=== PATIENT | male | born 1955 | race Caucasian/White ===

== ENCOUNTER → 2017-04-14 | Outpatient (CLI) | payer MEDICARE ==
--- NOTE | 2017-04-14 09:28 | RAD ---
AP right lower extremity, 04/14/2017: History: Preop evaluation, bone length study AP views of the femur and lower leg were obtained with skin markers in place laterally to facilitate preoperative bone length measurements. This limited exam demonstrates moderate degenerative change at the right knee joint with considerable narrowing of the medial compartment.
--- NOTE | 2017-04-14 10:23 | RAD ---
Examination: MRI right knee Tavarez & Nephew protocol HISTORY: History of chronic knee pain COMPARISON: None available TECHNIQUE: Axial T2 fat-saturated images and sagittal images of the knee was performed using Tavarez & Nephew protocol. FINDINGS: The anterior cruciate posterior cruciate ligament appear intact. There is an attenuated appearance of the body and posterior horn the medial meniscus probably degeneration or old degenerative tear. There is complete cartilage loss identified in the weightbearing portion of the medial compartment. Large osteophyte formation identified in the medial, lateral compartments. There is moderate osteophyte formation identified in the patellofemoral compartment. There is severe joint space loss identified in the medial, lateral, patellofemoral compartments. Moderate knee joint effusion. The extensor mechanism is intact. IMPRESSION: 1. Severe tricompartmental degenerative changes. 2. Moderate knee joint effusion. 3. Attenuated appearance of the body and posterior horn medial meniscus could be secondary to degeneration or old degenerative tear. Electronically signed by: Doc Valerio MD (04/14/2017 10:19 AM) [facility]
== END | disposition home or self-care (01) ==
LOC: RAD 08:51
PROVIDERS: ATTEND Orthopaedic Surgery Sports Medicine
DX: Z01.818 Encounter for other preprocedural examination (principal); M17.11 Unilateral primary osteoarthritis, right knee; Z96.651 Presence of right artificial knee joint
CPT/HCPCS: 73721; 77073

== ENCOUNTER → 2017-04-27 | Outpatient (CLI) | payer MEDICARE ==
[~2017-04-27] MED LIST: ASPI-482 PO; DM H PO; FERR-26 PO; HYDR12.58 PO; LOSA100T6 PO; POTA10TA12 PO; SIMV40TA3 PO; TRAM50TA PO; WARF5TAB7 PO; ZOLP10TA PO
[2017-04-27 14:16] LABS: BASO # 0.1 x10^3/uL (0.0-0.2); BASO % 1 % (0-3); EOS % 8 % (0-3); HEMATOCRIT 42.7 % (39.0-53.0); HEMOGLOBIN 14.8 g/dL (13.0-17.5); LYMPH # 2.7 x10^3/uL (1.0-4.8); LYMPH % 31 % (24-48); MEAN CORPUSCULAR HEMOGLOBIN 30 pg (25-35); MEAN CORPUSCULAR HGB CONC 35 g/dL (31-37); MEAN CORPUSCULAR VOLUME 87 fL (79-100); MONO % 6 % (0-9); NEUT % 55 % (31-73); PLATELET COUNT 212 x10^3/uL (140-400); RED BLOOD COUNT 4.93 x10^6/uL (4.30-5.70); WHITE BLOOD COUNT 8.9 x10^3/uL (4.0-11.0)
[2017-04-27 14:26] LABS: INR 1.1 (0.8-1.1); PROTHROMBIN TIME PATIENT 13.2 SEC (11.7-14.0)
--- NOTE | 2017-04-27 14:29 | EKG ---
[facility] [address] [place] [address] Test Date: 2017-04-27 Test Time: 14:34:19 Pat Name: JANELLE BYRD Department: Room: Gender: M Community Board Member: : 1955 Requested By: ISSA LAROSE Order Number: [id number] Reading MD: Minor Toussaint Measurements Intervals [place] Rate: 74 P: 38 MN: 200 QRS: 29 QRSD: 76 T: 48 QT: 370 QTc: 416 Interpretive Statements SINUS RHYTHM S1,S2,S3 PATTERN QRS(T) CONTOUR ABNORMALITY CONSISTENT WITH POSSIBLE SEPTAL INFARCT AGE UNDETERMINED ABNORMAL ECG RI6.01 No previous ECG available for comparison Electronically Signed On 04-29-2017 16:27:59 CDT by Minor Toussaint
[2017-04-27 14:31] LABS: BILIRUBIN,URINE NEGATIVE (NEG); GLUCOSE,URINE NEGATIVE (NEG); NITRITE,URINE NEGATIVE (NEG); PH,URINE 5.5; PROTEIN,URINE NEGATIVE (NEG-TRACE); UROBILINOGEN,URINE 0.2 mg/dL (0.2 mg/dL)
[2017-04-27 14:35] LABS: ALBUMIN 3.6 g/dL (3.4-5.0); CALCIUM 9.5 mg/dL (8.5-10.1); CREATININE 1.3 mg/dL (0.7-1.3); GFR 56.3; POTASSIUM 3.2 mmol/L (3.5-5.1)
[2017-04-27 14:50] LABS: BACTERIA,URINE 0 /HPF (0-FEW); RBC,URINE 0 /HPF (0-2); SQUAMOUS EPITHELIAL CELL,UR OCC /LPF; WBC,URINE 0 /HPF (0-4)
--- NOTE | 2017-04-27 16:48 | RAD ---
CHEST PA LATERAL Clinical Indication: PRE OP pt to have knee surgery 05/09 Comparison: None. Findings: Normal lung volume. No focal consolidation. Normal pulmonary vasculature. No pleural effusion or pneumothorax. The cardiomediastinal silhouette is normal. Tortuous thoracic aorta. No acute osseous abnormality. Moderate multilevel degenerative changes of the visualized spine. Rounded small metallic foreign body overlying the right superior mediastinum seen only on the frontal view. IMPRESSION: No acute cardiopulmonary process.
== END | disposition home or self-care (01) ==
LOC: SURGPAT 13:35
PROVIDERS: ATTEND Orthopaedic Surgery Sports Medicine
DX: Z01.818 Encounter for other preprocedural examination (principal); M17.11 Unilateral primary osteoarthritis, right knee
CPT/HCPCS: 36415; 71020; 80048; 81001; 82040; 85025; 85610; 85651; 85730; 87641; 93005

== ENCOUNTER 2017-05-09 06:13 | Inpatient (IN) | payer MEDICARE ==
[2017-05-09] VITALS (9 sets, daily range): BP systolic 89–134; BP diastolic 48–83
[~2017-05-09] VITALS: Ht 170.2 cm; Wt 111.3 kg
[~2017-05-09 06:13] MED LIST changes: +ACETAMINOPHEN 500 MG TABLET PO PRN; -FERR-26 PO; +HYDROcodone/APAP 7.5/325MG 1 TAB TABLET PO PRN; +MELOXICAM 7.5 MG TABLET PO PRN; +MORPHINE SULFATE 5 MG, KETOROLAC 30 MG, ROPIVacaine 0.5% PF 60 ML, EPINEPHrine 0.5 MG i... INT ART ONE; -WARF5TAB7 PO
[2017-05-09] MEDS ORDERED: fentaNYL PF VIAL 100 MCG/2 ML VIAL IV PRN ×3 (07:00→07:15)
[2017-05-09] MEDS ORDERED: ONDANSETRON PF 4 MG/2 ML VIAL. IV PRN (07:00)
[2017-05-09] MEDS ORDERED: IV RINGERS,LACTATED 1000ML 1,000 ML IV SCH (07:00)
[2017-05-09] MEDS ORDERED: HYDROmorphone 2 MG/ML VIAL IV PRN (07:00)
[2017-05-09] MEDS ORDERED: PROCHLORPERAZINE 10 MG/2 ML VIAL. IV PRN ×2 (07:00→07:15)
[2017-05-09] MEDS ORDERED: LIDOCAINE 1% PF 2 ML VIAL. ID PRN (07:00)
[2017-05-09] MEDS ORDERED: ROCURONIUM 100 MG/10 ML VIAL. ONE (07:13)
[2017-05-09] MEDS ORDERED: MIDAZOLAM HCL/PF 2 MG/2 ML VIAL. ONE (07:14)
[2017-05-09] MEDS ORDERED: fentaNYL PF VIAL 100 MCG/2 ML VIAL ONE ×2 (07:14→11:19)
[2017-05-09] MEDS ORDERED: MORPHINE SULFATE 4 MG/ML DISP.SYRIN. IV PRN ×2 (07:15)
[2017-05-09] MEDS ORDERED: FAMOTIDINE 20 MG/2 ML VIAL ONE (07:15)
[2017-05-09] MEDS ORDERED: ZOLPIDEM 5 MG TABLET. PO PRN ×2 (07:15)
[2017-05-09] MEDS ORDERED: DEXTROSE 50% 25 GM / 50ML DISP.SYRIN. IV PRN (07:15)
[2017-05-09] MEDS ORDERED: LIDOCAINE 2% PF Vial for OR 5 ML VIAL. ONE (07:15)
[2017-05-09] MEDS ORDERED: METOCLOPRAMIDE HCL 10 MG/2 ML VIAL. IV PRN (07:15)
[2017-05-09] MEDS ORDERED: HYDROcodone/APAP 10/325 1 TAB TABLET PO PRN (07:15)
[2017-05-09] MEDS ORDERED: 0.9 % SODIUM CHLORIDE 10 ML DISP.SYRIN. IV PRN (07:15)
[2017-05-09] MEDS ORDERED: CALCIUM CARBONATE 500 MG TAB.CHEW PO PRN (07:15)
[2017-05-09] MEDS ORDERED: diphenhydrAMINE 50 MG/ML VIAL IV PRN (07:15)
[2017-05-09] MEDS ORDERED: HYDROcodone/APAP 7.5/325MG 1 TAB TABLET PO PRN (07:15)
[2017-05-09] MEDS ORDERED: ACETAMINOPHEN 325 MG TABLET. PO PRN (07:15)
[2017-05-09] MEDS ORDERED: DEXAMETHASONE SOD PHOS 20 MG/5 ML VIAL. ONE (07:15)
[2017-05-09] MEDS ORDERED: PROCHLORPERAZINE 5 MG TABLET. PO PRN (07:15)
[2017-05-09] MEDS ORDERED: MORPHINE SULFATE 2 MG/ML DISP.SYRIN. IV PRN (07:15)
[2017-05-09] MEDS ORDERED: PROPOFOL 20 ML IV ONE (07:15)
[2017-05-09] MEDS ORDERED: oxyCODONE/APAP 5/325 1 TAB TABLET PO PRN (07:15)
[2017-05-09] MEDS ORDERED: traMADol 50 MG TABLET PO PRN ×2 (07:15)
[2017-05-09] MEDS ORDERED: ONDANSETRON PF 4 MG/2 ML VIAL. ONE (07:15)
[2017-05-09] MEDS ORDERED: MORPHINE SULFATE 10 MG/ML VIAL. IV PRN (07:15)
--- NOTE | 2017-05-09 07:15 | PDOC ---
BRIEF OPERATIVE NOTE Date: May 09, 2017 Pre-Op Diagnosis R knee DJD, primary Post-Op Diagnosis same Procedure Performed R TKA Surgeon Vivi Anesthesia Type: General, Local ISSA LAROSE II, MD May 09, 2017 07:15
[2017-05-09 07:34] LABS: PROTHROMBIN TIME PATIENT 12.7 SEC (11.7-14.0)
[2017-05-09] MEDS ORDERED: MORPHINE SULFATE 10 MG/ML VIAL. ONE (07:57)
[2017-05-09] MEDS ORDERED: 0.9 % SODIUM CHLORIDE 50 ML VIAL. IJ ONE (07:57)
[2017-05-09] MEDS ORDERED: GLYCOPYRROLATE 1 MG/5 ML VIAL. ONE (09:16)
[2017-05-09] MEDS ORDERED: NEOSTIGMINE METHYLSULFATE 5 MG/5 ML SYRINGE. ONE (09:16)
[2017-05-09] MEDS ORDERED: SEVOFLURANE 61 TO 120 MINUTES. IH ONE (09:35)
[2017-05-09] MEDS ORDERED: SEVOFLURANE > 120 MINUTES. IH ONE (09:35)
[2017-05-09] MEDS: fentaNYL PF VIAL 100 MCG/2 ML VIAL IV PRN ×3 (10:21→11:22)
[2017-05-09] MEDS ORDERED: MORPHINE SULFATE 2 MG/ML DISP.SYRIN. ONE (10:42)
[2017-05-09] MEDS: MORPHINE SULFATE 2 MG/ML DISP.SYRIN. IV PRN ×2 (10:44→11:03)
--- NOTE | 2017-05-09 11:21 | RAD ---
Indication: Post right knee replacement. Technique: 2 views of the right knee are submitted for review. No comparison is available. Findings: Right knee arthroplasty has been performed. Hardware is well seated. There is no perihardware lucency. Cartridge projects over the knee anteriorly and laterally. Surgical drain is noted. No fracture or dislocation is apparent. Impression: Expected postoperative findings of a right knee arthroplasty.
--- NOTE | 2017-05-09 11:33 | OP ---
DATE OF SURGERY: 05/09/2017 SURGEON: Bowen Larose M.D. CURVE CLEANER: Arlette Alamo. PREOPERATIVE DIAGNOSIS: Advanced primary degenerative joint disease, right knee. POSTOPERATIVE DIAGNOSIS: Advanced primary degenerative joint disease, right knee. PROCEDURE PERFORMED: Right total knee arthroplasty. COMPONENTS INSERTED: 1. Tavarez and Nephew size 4 Oxinium femur. 2. Size 3 tibial baseplate. 3. A 23- mm biconvex patella. 4. A 9-mm thick articular insert. ESTIMATED BLOOD LOSS: 125 mL. TOURNIQUET TIME: 71 minutes. COMPLICATIONS: None. REASON FOR PROCEDURE: The patient is a very pleasant 62-year-old gentleman with history of prior knee surgery and progressive and severe pain and trivial to his advanced right primary degenerative joint disease of his knee. He had failed conservative therapy such as anti-inflammatories, rehabilitation program and intra-articular steroids; and because of this, we had a discussion of the risks, benefits and alternatives of proceeding with the above surgery and he elected to proceed. DESCRIPTION OF PROCEDURE: The patient was greeted in the preoperative area by myself. His correct extremity was marked and verified. He was taken to the operative suite and antibiotics were started en route. Once in the OR, he was transferred gently supine to the OR table and secured to the bed with all pressure points padded. After successful induction with general anesthetic, we then taped in place a nonsterile tourniquet to his right thigh and proceeded to prep and drape right lower extremity in our usual sterile fashion, after being attached to our leg positioning device to the bed. We then proceeded to prep and drape including an Ioban sandwich. We conducted a standard preoperative timeout. I palpated and marked surface anatomy, including his patella and tibial tubercle and jose a line for my planned anterior midline skin incision. The extremity was then exsanguinated with an Esmarch and tourniquet insufflated to 250 mmHg. I then incised the skin and dissected the subcutaneous tissue to identify his extensor mechanism and used electrocautery to cauterize bleeders. He had quite a bit of scar tissue medially around his knee. I then performed my medial parapatellar arthrotomy and then performed my medial release with a combination of Casiano and electrocautery. His knee was quite tight. I then bluntly dissected the fat pad off the posterior patellar tendon and protected this with an [employer] and then excised the fat pad. I then released the horns of the menisci and tried to flex his knee. Prior to the procedure, his range of motion of his knee was 5 degrees to 90 degrees and so this knee was quite stiff. I then released the cruciate ligaments and tried to further flex his knee. I then pinned my Visionaire cutting block into place. I then removed my Visionaire cutting block after placing pins in all the holes. To nicole them, I then used the regular distal femoral cutting block at a +2 position and pinned this into place and made my distal femoral cut. I then placed my 5-in-1 cutting guide and made these cuts and delivered the bony pieces from the operative field. I then placed my pickle fork retractor and released more of the PCL and posterior horns of the menisci. I placed my Z retractors to protect the collaterals. I then used the extramedullary tibial cutting guide to make my proximal tibial cut. I then delivered this bony piece from the operative field. I brought his leg on to extension and removed some small bony fragments laterally and then checked his alignment with a spacer block and drop dung and was happy. I then repositioned the knee and replaced my retractors and then sized for his tibia and felt the size 3 gave the best fit. I then pinned this into place, referencing the medial third tibial tubercle and drilled and punched for the baseplate fins. I then impacted my trial femoral component into position and reamed and punched for the box of this component. I then placed my Cam component and the polyethylene trial size 9. He had range of motion from 0-130 degrees and his knee was stable to varus and valgus in extension and mid flexion. He had good patellar tracking. I then directed my attention to his patella and felt the 26 was a little too bit, so I went with the 23 biconvex patella, secured the clamp and reamed for this. After this, I removed all trial components and thoroughly irrigated all bony surfaces and then proceeded to cement in place his tibial baseplate followed by his femur. Excess bone cement was removed. He had a trial polyethylene articular insert in place and the cement was allowed to polymerize with his leg in extension. While this was occurring, I secured and clamped my patellar button into place and removed excess cement from this as well. I then irrigated more. I then injected my periarticular mixture into the soft tissue envelope around his knee. After this and the cement polymerization, I took the knee through range of motion test and stability and was I happy with a 9. I removed the trial 9 articular insert and placed the 9-mm thick polyethylene insert. I then secured and engaged this with the insertion device. After this, the tourniquet was let down and bleeders were cauterized. He was a little bit of oozy from the exposed bone ends. So, I placed a one-eighth inch Hemovac exiting superolaterally from his knee. After this, I closed the arthrotomy with a simple interrupted #1 Vicryl and tested arthrotomy closure in flexion and noted no extravasation of blood. An inverted interrupted 2-0 was used to close the subcutaneous tissue, a multi-layered approach was used proximal to the patella. Running 4-0 Monocryl in subcuticular fashion was used for the skin. The leg was cleansed and dried. A Tavarez and Nephew LIZETTE dressing was applied. Prior to completion of wound closure, all counts were reported correct x 2. No complications. The patient tolerated the surgery well. At the conclusion of the surgery, he was awakened and transferred gently supine to the recovery room cart and taken to PACU in stable and extubated condition. Postop plan is to admit him to the floor for DVT and antibiotic prophylaxis. He will receive rehabilitation and IV pain medicine as well. BOWEN LAROSE MD DR: MINNA/aria JOB#: [id number] / [id number] JACKIE
[2017-05-09 13:50] LABS: HEMATOCRIT 40.5 % (39.0-53.0); HEMOGLOBIN 14.3 g/dL (13.0-17.5)
--- NOTE | 2017-05-09 14:36 | PDOC ---
PROGRESS NOTES Subjective Subjective Pt awake and pleasant in conversation. Denies pain at this time and states his right leg just feels heavy following surgery this am. Pt states he ate a good lunch and has a healthy appetite. Objective Objective Pt awake and alert. NAD. VSS. Afebrile. Lungs CTA bilat. Resp even and unlabored. Pt on RA, not requiring supplemental O2. Heart with RRR. No murmurs. Right knee dressing CDI. Wound drain reservoir present with minimal bloody drainage present. Right LE with good color and temperature. Overall skin WDP. Vital Signs Date Time Temp Pulse Resp B/P (MAP) Pulse Ox O2 Delivery O2 Flow Rate FiO2 05/09/17 13:30 73 20 102/60 (74) 95 Nasal Cannula 2.0 05/09/17 11:25 97.9 97.9 Intake and Output 05/10/17 07:00 Intake Total 640 ml Balance 640 ml Intake Oral 640 ml Plan Plan of Care 1. Right total knee -Followed by ortho -post surgical H and H pending -PT/OT ordered 2. HTN -Resume Losartan and HTCZ 3. Insomnia -Resume home Ambien 10mg qhs Comment Review of Relevant I have reviewed the following items nicole (where applicable) has been applied. Labs Laboratory Tests Test 05/09/17 06:55 05/09/17 13:40 Prothrombin Time 12.7 SEC (11.7-14.0) Prothromb Time International Ratio 1.0 (0.8-1.1) Activated Partial Thromboplast Time 27 SEC (24-38) Hemoglobin 14.3 g/dL (13.0-17.5) Hematocrit 40.5 % (39.0-53.0) Mean Corpuscular Hemoglobin Concent 35 g/dL (31-37) Laboratory Tests Test 05/09/17 06:55 05/09/17 13:40 Prothrombin Time 12.7 SEC (11.7-14.0) Prothromb Time International Ratio 1.0 (0.8-1.1) Activated Partial Thromboplast Time 27 SEC (24-38) Hemoglobin 14.3 g/dL (13.0-17.5) Hematocrit 40.5 % (39.0-53.0) Mean Corpuscular Hemoglobin Concent 35 g/dL (31-37) Medications Current Medications Ondansetron HCl (Zofran) 4 mg PRN Q6HRS PRN IV NAUSEA/VOMITING; Start at 07:00; Stop 05/10/17 at 06:59 Fentanyl Citrate (Fentanyl 2ml Vial) 25 mcg PRN Q5MIN PRN IV MILD PAIN; Start 05/09/17 at 07:00; Stop 05/10/17 at 06:59 Fentanyl Citrate (Fentanyl 2ml Vial) 50 mcg PRN Q5MIN PRN IV MODERATE PAIN Last administered on 05/09/17 11:22; Start 05/09/17 at 07:00; Stop 05/10/17 at 06:59 Morphine Sulfate 1 mg PRN Q10MIN PRN IV SEVERE PAIN Last administered on 11:03; Start 05/09/17 at 07:00; Stop 05/10/17 at 06:59 Ringer's Solution 1,000 ml @ 0 mls/hr Q0M IV Last administered on 05/09/17 07:12; Start 05/09/17 at 07:00; Stop 05/09/17 at 18:59 Lidocaine HCl (Xylocaine-Mpf 1% Vial) 2 ml PRN 1X PRN ID PRIOR TO IV START; Start 05/09/17 at 07:00; Stop 05/10/17 at 06:59 Hydromorphone HCl (Dilaudid) 0.5 mg PRN Q10MIN PRN IV SEV PAIN, Second choice; Start 05/09/17 at 07:00; Stop 05/10/17 at 06:59 Prochlorperazine Edisylate (Compazine) 5 mg PACU PRN PRN IV NAUSEA, MRX1; Start 05/09/17 at 07:00; Stop 05/10/17 at 06:59 Morphine Sulfate 5 mg/Ketorolac Tromethamine 30 mg/Ropivacaine 60 ml/ Epinephrine HCl 0.5 mg/Sodium Chloride 100 ml @ 100 mls/hr 1X PERIOP ONCE INT ART Last administered on 05/09/17 08:05; Start 05/09/17 at 06:00; Stop at 06:59; Status DC Meloxicam (Mobic) 15 mg 1X PREOP PRN PO PRIOR TO PROCEDURE Last administered on 05/09/17 07:13; Start 05/09/17 at 06:00; Stop 05/09/17 at 18:00 Acetaminophen/ Hydrocodone Bitart (Lortab 7.5/325) 2 tab 1X PREOP PRN PO PRIOR TO PROCEDURE Last administered on 05/09/17t 07:13; Start 05/09/17 at 06:00; Stop 05/09/17 at 18:00 Acetaminophen (Tylenol) 1,000 mg 1X PREOP PRN PO PRIOR TO PROCEDURE; Start at 06:00; Stop 05/09/17 at 18:00 Cefazolin Sodium/ Dextrose 50 ml @ 100 mls/hr 1X PREOP PRN IV PRIOR TO PROCEDURE Last administered on 05/09/17t 07:35; Start 05/09/17 at 06:00; Stop 05/09/17 at 18:00 Potassium Chloride (Klor-Con) 10 meq DAILYWBKFT PO ; Start 05/10/17 at 08:00 Simvastatin (Zocor) 40 mg HS PO ; Start 05/09/17 at 21:00 Hydrochlorothiazide (Microzide) 12.5 mg DAILY PO ; Start 05/10/17 at 09:00 Losartan Potassium (Cozaar) 100 mg DAILY PO ; Start 05/10/17 at 09:00 Zolpidem Tartrate (Ambien) 5 mg PRN QHS PRN PO INSOMNIA; Start 05/09/17 at 07: 15 Rocuronium Mesa (Zemuron) 100 mg STK-MED ONCE .ROUTE ; Start 05/09/17 at 07: 13; Stop 05/09/17 at 07:14; Status DC Fentanyl Citrate (Fentanyl 2ml Vial) 100 mcg STK-MED ONCE .ROUTE ; Start at 07:14; Stop 05/09/17 at 07:15; Status DC Midazolam HCl (Versed) 2 mg STK-MED ONCE .ROUTE ; Start 05/09/17 at 07:14; Stop 05/09/17 at 07:15; Status DC Acetaminophen/ Hydrocodone Bitart (Lortab 7.5/325) 1 tab PRN Q3HRS PRN PO PAIN ; Start 05/09/17 at 07:15 Acetaminophen/ Hydrocodone Bitart (Lortab 10/325) 1 tab PRN Q3HRS PRN PO PAIN; Start 05/09/17 at 07:15 Tramadol HCl (Ultram) 50 mg PRN QID PRN PO PAIN; Start 05/09/17 at 07:15 Oxycodone/ Acetaminophen (Percocet 5/325) 1 tab PRN Q3HRS PRN PO PAIN; Start 05/09/17 at 07:15 Oxycodone/ Acetaminophen (Percocet 7.5/ 325) 1 tab PRN Q3HRS PRN PO PAIN; Start 05/09/17 at 07:15 Tramadol HCl (Ultram) 100 mg PRN Q3HRS PRN PO PAIN; Start 05/09/17 at 07:15 Morphine Sulfate 2 mg PRN Q1HR PRN IV PAIN; Start 05/09/17 at 07:15 Fentanyl Citrate (Fentanyl 2ml Vial) 25 mcg PRN Q1HR PRN IV PAIN; Start at 07:15 Diphenhydramine HCl (Benadryl) 25 mg PRN Q6HRS PRN IV ITCHING; Start 05/09/17 at 07:15 Warfarin Sodium (Coumadin) 7.5 mg 1X ONCE PO ; Start 05/09/17 at 16:00; Stop 05/09/17 at 16:01 Warfarin Sodium (Coumadin Per Pharmacy) 1 each PRN DAILY PRN MC SEE COMMENTS; Start 05/09/17 at 07:15 Multivitamins (Thera M Plus) 1 tab DAILY PO ; Start 05/10/17 at 09:00 Senna/Docusate Sodium (Senna Plus) 1 tab DAILY PO ; Start 05/10/17 at 09:00 Ferrous Sulfate (Feosol) 325 mg BIDWMEALS PO ; Start 05/10/17 at 08:00 Celecoxib (CeleBREX) 200 mg BID PO ; Start 05/09/17 at 21:00 Dextrose/Sodium Chloride 1,000 ml @ 100 mls/hr Q10H IV ; Start 05/09/17 at 07: 09 Prochlorperazine Maleate (Compazine) 10 mg PRN Q4HRS PRN PO NAUSEA/VOMITING; Start 05/09/17 at 07:15 Metoclopramide HCl (Reglan) 10 mg PRN Q4HRS PRN IV NAUSEA/VOMITING; Start at 07:15 Magnesium Hydroxide (Milk Of Magnesia) 2,400 mg 1X PRN PRN PO CONSTIPATION; Start 05/10/17 at 06:00; Stop 05/11/17 at 05:59 Bisacodyl (Dulcolax Supp) 10 mg 1X PRN PRN AR CONSTIPATION; Start 05/10/17 at 16:00; Stop 05/11/17 at 15:59 Acetaminophen (Tylenol) 650 mg PRN Q4HRS PRN PO MILD PAIN / TEMP; Start at 07:15 Zolpidem Tartrate (Ambien) 5 mg PRN QHS PRN PO INSOMNIA, MAY REPEAT IN 1HR; Start 05/09/17 at 07:15 Calcium Carbonate/ Glycine (Tums) 500 mg PRN QID PRN PO INDIGESTION; Start at 07:15 Morphine Sulfate 4 mg PRN Q1HR PRN IV PAIN; Start 05/09/17 at 07:15 Morphine Sulfate 6 mg PRN Q1HR PRN IV PAIN; Start 05/09/17 at 07:15 Morphine Sulfate 8 mg PRN Q1HR PRN IV PAIN; Start 05/09/17 at 07:15 Sodium Chloride (Normal Saline Flush) 10 ml QSHIFT PRN IV AFTER MEDS AND BLOOD DRAWS; Start 05/09/17 at 07:15 Fentanyl Citrate (Fentanyl 2ml Vial) 50 mcg PRN Q1HR PRN IV PAIN; Start at 07:15 Prochlorperazine Edisylate (Compazine) 10 mg PRN Q4HRS PRN IV NAUSEA/VOMITING; Start 05/09/17 at 07:15 Dextrose (Dextrose 50%-Water Syringe) 12.5 gm PRN Q15MIN PRN IV SEE COMMENTS; Start 05/09/17 at 07:15 Cefazolin Sodium/ Dextrose 50 ml @ 100 mls/hr Q6H IV ; Start 05/09/17 at 13:30 ; Stop 05/10/17 at 01:59 Propofol 20 ml @ As Directed STK-MED ONCE IV ; Start 05/09/17 at 07:15; Stop 05/09/17 at 07:16; Status DC Dexamethasone Sodium Phosphate (Decadron) 20 mg STK-MED ONCE .ROUTE ; Start at 07:15; Stop 05/09/17 at 07:16; Status DC Famotidine (Pepcid) 20 mg STK-MED ONCE .ROUTE ; Start 05/09/17 at 07:15; Stop 05/09/17 at 07:16; Status DC Lidocaine HCl (Lidocaine Pf 2% Vial) 5 ml STK-MED ONCE .ROUTE ; Start 05/09/17 at 07:15; Stop 05/09/17 at 07:16; Status DC Ondansetron HCl (Zofran) 4 mg STK-MED ONCE .ROUTE ; Start 05/09/17 at 07:15; Stop 05/09/17 at 07:16; Status DC Morphine Sulfate 10 mg STK-MED ONCE .ROUTE ; Start 05/09/17 at 07:57; Stop at 07:58; Status DC Sodium Chloride (Sodium Chloride) 50 ml STK-MED ONCE IJ ; Start 05/09/17 at 07: 57; Stop 05/09/17 at 07:58; Status DC Neostigmine Methylsulfate 5 mg STK-MED ONCE .ROUTE ; Start 05/09/17 at 09:16; Stop 05/09/17 at 09:17; Status DC Glycopyrrolate (Robinul) 1 mg STK-MED ONCE .ROUTE ; Start 05/09/17 at 09:16; Stop 05/09/17 at 09:17; Status DC Sevoflurane (Ultane) 60 ml STK-MED ONCE IH ; Start 05/09/17 at 09:35; Stop at 09:36; Status DC Sevoflurane (Ultane) 90 ml STK-MED ONCE IH ; Start 05/09/17 at 09:35; Stop at 09:36; Status DC Morphine Sulfate 2 mg STK-MED ONCE .ROUTE ; Start 05/09/17 at 10:42; Stop at 10:43; Status DC Fentanyl Citrate (Fentanyl 2ml Vial) 100 mcg STK-MED ONCE .ROUTE ; Start at 11:19; Stop 05/09/17 at 11:20; Status DC Active Scripts Active Reported Potassium Chloride 10 Meq Tablet.er 10 Meq PO DAILY Cold Relief Head Congest Cplt (Dm Hb/Pe/Acetaminophen/Chlorph) 1 Each Tablet.seq 1 Each PO PRN Q24HRS PRN Hydrochlorothiazide Tablet (Hydrochlorothiazide) 12.5 Mg Tablet 12.5 Mg PO DAILY Losartan Potassium 100 Mg Tablet 100 Mg PO DAILY Simvastatin 40 Mg Tablet 40 Mg PO HS Tramadol Hcl 50 Mg Tablet 1 Tab PO TID Ambien (Zolpidem Tartrate) 10 Mg Tablet 10 Mg PO HS PRN Aspir 81 (Aspirin) 81 Mg Tablet. 1 Tab PO DAILY Vitals/I & O Vital Sign - Last 24 Hours 05/09/17 05/09/17 05/09/17 05/09/17 06:32 06:49 07:13 10:10 Temp 97.3 97.3 98.1 97.3 97.3 98.1 Pulse 56 56 80 Resp 20 20 20 16 B/P (MAP) 163/73 121/59 Pulse Ox 99 99 99 97 O2 Delivery Room Air Room Air Simple Mask O2 Flow Rate 10 05/09/17 05/09/17 05/09/17 05/09/17 10:21 10:25 10:32 10:40 Pulse 78 72 Resp 14 16 18 16 B/P (MAP) 98/42 95/51 Pulse Ox 97 94 95 93 O2 Delivery Simple Mask Room Air Nasal Cannula Room Air O2 Flow Rate 3.0 05/09/17 05/09/17 05/09/17 05/09/17 10:44 10:55 11:03 11:10 Temp 97.9 97.9 Pulse 81 78 Resp 18 16 18 18 B/P (MAP) 97/44 94/48 Pulse Ox 96 96 O2 Delivery Nasal Cannula Nasal Cannula O2 Flow Rate 2 2 05/09/17 05/09/17 05/09/17 05/09/17 11:22 11:25 11:45 11:45 Temp 97.9 97.9 Pulse 68 76 76 Resp 14 18 20 20 B/P (MAP) 92/46 101/58 (72) 101/58 (72) Pulse Ox 96 92 92 92 O2 Delivery Nasal Cannula Nasal Cannula Nasal Cannula Nasal Cannula O2 Flow Rate 2 2.0 2.0 05/09/17 05/09/17 05/09/17 05/09/17 12:00 12:15 12:20 12:30 Pulse 79 68 82 Resp 20 20 20 B/P (MAP) 98/56 (70) 101/59 (73) 89/83 (85) Pulse Ox 97 96 97 O2 Delivery Nasal Cannula Nasal Cannula Nasal Cannula Nasal Cannula O2 Flow Rate 2.0 2.0 2.0 2.0 05/09/17 05/09/17 13:00 13:30 Pulse 76 73 Resp 2 20 B/P (MAP) 90/48 (62) 102/60 (74) Pulse Ox 95 95 O2 Delivery Nasal Cannula Nasal Cannula O2 Flow Rate 2.0 2.0 Intake and Output 05/09/17 05/09/17 05/10/17 15:00 23:00 07:00 Intake Total 640 ml Balance 640 ml STUART JERNIGAN APRN May 09, 2017 14:36
[2017-05-09] MEDS ORDERED: WARFARIN 7.5 MG TABLET. PO ONE (16:00)
[2017-05-09] MEDS: oxyCODONE/APAP 7.5/325 1 TAB TABLET PO PRN (16:05)
[2017-05-09] MEDS: IV DEXTROSE 5 %-0.45 % NACL 1,000 ML IV SCH ×2 (16:05→17:09)
[2017-05-09] MEDS ORDERED: SIMVASTATIN 40 MG TABLET. PO SCH (21:00)
[2017-05-09] MEDS: CELECOXIB 200 MG CAPSULE. PO SCH (21:43)
[2017-05-10 03:00] VITALS: BP 110/61
[2017-05-10] MEDS: IV DEXTROSE 5 %-0.45 % NACL 1,000 ML IV SCH (03:09)
[2017-05-10 05:14] LABS: HEMATOCRIT 37.7 % (39.0-53.0); HEMOGLOBIN 12.9 g/dL (13.0-17.5)
[2017-05-10 05:23] LABS: INR 1.2 (0.8-1.1); PROTHROMBIN TIME PATIENT 14.5 SEC (11.7-14.0)
[2017-05-10] MEDS ORDERED: MAGNESIUM HYDROXIDE 2,400 MG/30 ML ORAL.SUSP. PO PRN (06:00)
[2017-05-10] MEDS: oxyCODONE/APAP 7.5/325 1 TAB TABLET PO PRN ×4 (06:07→17:01)
[2017-05-10 07:00] VITALS: BP 104/65
[2017-05-10] MEDS ORDERED: POTASSIUM CHLORIDE 10 MEQ TABLET.ER. PO SCH (08:00)
[2017-05-10] MEDS: CELECOXIB 200 MG CAPSULE. PO SCH (08:51)
[2017-05-10] MEDS: FERROUS SULFATE 325 MG TABLET. PO SCH ×2 (08:51→17:02)
[2017-05-10] MEDS ORDERED: SENNOSIDES/DOCUSATE 8.6/50MG TABLET. PO SCH (09:00)
[2017-05-10] MEDS ORDERED: MULTIVITAMIN with MINERAL TABLET. PO SCH (09:00)
[2017-05-10] MEDS ORDERED: LOSARTAN POTASSIUM 50 MG TABLET. PO SCH (09:00)
[2017-05-10] MEDS ORDERED: hydroCHLOROthiazide 12.5 MG CAPSULE PO SCH (09:00)
--- NOTE | 2017-05-10 09:34 | DISCH ---
DISCHARGE INSTRUCTIONS Condition on Discharge Condition on Discharge: Stable Activity After Discharge Activity Instructions for Disc: Activity as tolerated Bathing Instructions: Shower-keep dressing dry Weight Bearing Status after Di: As tolerated Diet after Discharge Diet after Discharge: Regular Wound Incision Care Wound/Incision Care: Ice to area for comfort, Keep wound/cast CDI, Do not change dressing Community/Resources/Services Services at Discharge: Home Health Care Services Contacting the [facility] after DC Call your doctor for: Concerns you may have Follow-Up Follow up with: Vivi in 2wks Warfarin Follow-Up Warfarin Follow UP: per Pharmacy ISSA LAROSE II, MD May 10, 2017 09:34
--- NOTE | 2017-05-10 09:36 | PDOC ---
ORTHO PROGRESS NOTES Subjective Kota was up and walking last night, he tells me his pain is doing fairly well. Really no complaints or concerns at all. He asks about going home Vitals Vital Signs Date Time Temp Pulse Resp B/P (MAP) Pulse Ox O2 Delivery O2 Flow Rate FiO2 05/10/17 09:09 Room Air 05/10/17 08:52 63 104/65 05/10/17 07:09 98 05/10/17 07:00 97.6 18 2.0 97.6 Labs Laboratory Tests Test 05/09/17 06:55 05/09/17 13:40 05/10/17 04:55 Prothrombin Time 12.7 SEC (11.7-14.0) 14.5 SEC (11.7-14.0) Prothromb Time International Ratio 1.0 (0.8-1.1) 1.2 (0.8-1.1) Activated Partial Thromboplast Time 27 SEC (24-38) Hemoglobin 14.3 g/dL (13.0-17.5) 12.9 g/dL (13.0-17.5) Hematocrit 40.5 % (39.0-53.0) 37.7 % (39.0-53.0) Mean Corpuscular Hemoglobin Concent 35 g/dL (31-37) 34 g/dL (31-37) Laboratory Tests Test 05/09/17 13:40 05/10/17 04:55 Hemoglobin 14.3 g/dL (13.0-17.5) 12.9 g/dL (13.0-17.5) Hematocrit 40.5 % (39.0-53.0) 37.7 % (39.0-53.0) Mean Corpuscular Hemoglobin Concent 35 g/dL (31-37) 34 g/dL (31-37) Prothrombin Time 14.5 SEC (11.7-14.0) Prothromb Time International Ratio 1.2 (0.8-1.1) Notes He is awake and alert, sitting in a chair. The wound VAC is intact over his knee. Normal motor and sensation distally. Assessment and Plan Drain can be removed this morning. Wound VAC will stay in place. He will have physical therapy today. I am okay with him going home later today. ISSA LAROSE II, MD May 10, 2017 09:35
--- NOTE | 2017-05-10 09:37 | DISCH ---
DISCHARGE WITH HOME HEALTH DISCHARGE INFORMATION: Discharge Date: May 10, 2017 Final Diagnosis: Right primary degenerative joint disease, total knee replacement Condition on Discharge: Stable HOME HEALTH: Face to Face: I certify this patient is under my care and that I, or a nurse practitioner or physician's assistant associate professor working with me, had a face to face encounter that meets the physician face to face encounter requirements with this patient on []. Medical Condition(s): S/P Joint Replacement Detention For: Other: (INR blood draws) Physical Therapy For: Evalulation/Treatment Occupational Therapy For: Evaluation/Treatment Patient meets Homebound Statu: Unsteady balance w/ amb, FOLLOW-UP: Follow up with: Vivi in 2wks Follow Up With: Ryan CERTIFICATION STATEMENT: Certification Statement: Certification Statement: Based on the above finding, I certify that this patient is confined to the home and needs intermittent group home care, physical therapy and/or speech therapy, or continues to need occupational therapy.~ This patient is under my care, and I have initiated the establishment of the plan of care.~ This patient will be followed by myself or a community physician who will periodically review the plan of care. ISSA LAROSE II, MD May 10, 2017 09:37
[2017-05-10 11:00] VITALS: BP 113/64
--- NOTE | 2017-05-10 11:00 | PDOC ---
PROGRESS NOTES Subjective Subjective Pt awake and pleasant in conversation. States he has had some pain at the incision site, however states the Percocet is adequately controlling the pain. Pt states he has not had a BM since yesterday am, however does not feel constipated. Pt states he has been eating and drinking well since surgery. Objective Objective Pt awake and alert. NAD. VSS. Afebrile. Lungs CTA bilat. Resp even and unlabored. Heart with RRR. No murmurs. No pedal edema. Dressing to R knee CDI. Vital Signs Date Time Temp Pulse Resp B/P (MAP) Pulse Ox O2 Delivery O2 Flow Rate FiO2 05/10/17 09:09 Room Air 05/10/17 08:52 63 104/65 05/10/17 07:09 98 05/10/17 07:00 97.6 18 2.0 97.6 Intake and Output 05/11/17 07:00 Output Total 275 ml Balance -275 ml Output Urine Total 250 ml Drainage Total 25 ml Plan Plan of Care 1. Right total knee on 05/09 -Followed by ortho -post surgical hgb 14.3, this am 12.7. -PT/OT 2. HTN -Continue Losartan and HTCZ 3. Insomnia -Continue home Ambien 10mg qhs Pt to Dc home today per ortho's orders. Pt with f/u appt with Dr Trinidad on the . Pt will have HH for PT/OT. Pt working with PT on crutches and walker prior to Dc today. Pt to f/u in our office within 2 weeks. Pt stated understanding of the Dc orders, denied questions, and stated he would f/u accordingly. Comment Review of Relevant I have reviewed the following items nicole (where applicable) has been applied. Labs Laboratory Tests Test 05/09/17 06:55 05/09/17 13:40 05/10/17 04:55 Prothrombin Time 12.7 SEC (11.7-14.0) 14.5 SEC (11.7-14.0) Prothromb Time International Ratio 1.0 (0.8-1.1) 1.2 (0.8-1.1) Activated Partial Thromboplast Time 27 SEC (24-38) Hemoglobin 14.3 g/dL (13.0-17.5) 12.9 g/dL (13.0-17.5) Hematocrit 40.5 % (39.0-53.0) 37.7 % (39.0-53.0) Mean Corpuscular Hemoglobin Concent 35 g/dL (31-37) 34 g/dL (31-37) Laboratory Tests Test 05/09/17 13:40 05/10/17 04:55 Hemoglobin 14.3 g/dL (13.0-17.5) 12.9 g/dL (13.0-17.5) Hematocrit 40.5 % (39.0-53.0) 37.7 % (39.0-53.0) Mean Corpuscular Hemoglobin Concent 35 g/dL (31-37) 34 g/dL (31-37) Prothrombin Time 14.5 SEC (11.7-14.0) Prothromb Time International Ratio 1.2 (0.8-1.1) Medications Current Medications Ondansetron HCl (Zofran) 4 mg PRN Q6HRS PRN IV NAUSEA/VOMITING; Start at 07:00; Stop 05/10/17 at 06:59; Status DC Fentanyl Citrate (Fentanyl 2ml Vial) 25 mcg PRN Q5MIN PRN IV MILD PAIN; Start 05/09/17 at 07:00; Stop 05/10/17 at 06:59; Status DC Fentanyl Citrate (Fentanyl 2ml Vial) 50 mcg PRN Q5MIN PRN IV MODERATE PAIN Last administered on 05/09/17 11:22; Start 05/09/17 at 07:00; Stop 05/10/17 at 06:59; Status DC Morphine Sulfate 1 mg PRN Q10MIN PRN IV SEVERE PAIN Last administered on 11:03; Start 05/09/17 at 07:00; Stop 05/09/17 at 14:42; Status DC Ringer's Solution 1,000 ml @ 0 mls/hr Q0M IV Last administered on 05/09/17 07:12; Start 05/09/17 at 07:00; Stop 05/09/17 at 14:42; Status DC Lidocaine HCl (Xylocaine-Mpf 1% Vial) 2 ml PRN 1X PRN ID PRIOR TO IV START; Start 05/09/17 at 07:00; Stop 05/09/17 at 14:42; Status DC Hydromorphone HCl (Dilaudid) 0.5 mg PRN Q10MIN PRN IV SEV PAIN, Second choice; Start 05/09/17 at 07:00; Stop 05/09/17 at 14:42; Status DC Prochlorperazine Edisylate (Compazine) 5 mg PACU PRN PRN IV NAUSEA, MRX1; Start 05/09/17 at 07:00; Stop 05/09/17 at 14:42; Status DC Morphine Sulfate 5 mg/Ketorolac Tromethamine 30 mg/Ropivacaine 60 ml/ Epinephrine HCl 0.5 mg/Sodium Chloride 100 ml @ 100 mls/hr 1X PERIOP ONCE INT ART Last administered on 05/09/17 08:05; Start 05/09/17 at 06:00; Stop at 14:42; Status DC Meloxicam (Mobic) 15 mg 1X PREOP PRN PO PRIOR TO PROCEDURE Last administered on 05/09/17 07:13; Start 05/09/17 at 06:00; Stop 05/09/17 at 18:00; Status DC Acetaminophen/ Hydrocodone Bitart (Lortab 7.5/325) 2 tab 1X PREOP PRN PO PRIOR TO PROCEDURE Last administered on 05/09/17 07:13; Start 05/09/17 at 06:00; Stop 05/09/17 at 18:00; Status DC Acetaminophen (Tylenol) 1,000 mg 1X PREOP PRN PO PRIOR TO PROCEDURE; Start at 06:00; Stop 05/09/17 at 14:42; Status DC Cefazolin Sodium/ Dextrose 50 ml @ 100 mls/hr 1X PREOP PRN IV PRIOR TO PROCEDURE Last administered on 05/09/17 07:35; Start 05/09/17 at 06:00; Stop 05/09/17 at 18:00; Status DC Potassium Chloride (Klor-Con) 10 meq DAILYWBKFT PO Last administered on 08:51; Start 05/10/17 at 08:00 Simvastatin (Zocor) 40 mg HS PO Last administered on 05/09/17 21:43; Start 05/09/17 at 21:00 Hydrochlorothiazide (Microzide) 12.5 mg DAILY PO Last administered on 08:51; Start 05/10/17 at 09:00 Losartan Potassium (Cozaar) 100 mg DAILY PO Last administered on 05/10/17 08: 52; Start 05/10/17 at 09:00 Zolpidem Tartrate (Ambien) 5 mg PRN QHS PRN PO INSOMNIA Last administered on 21:43; Start 05/09/17 at 07:15 Rocuronium [place] (Zemuron) 100 mg STK-MED ONCE .ROUTE ; Start 05/09/17 at 07: 13; Stop 05/09/17 at 14:42; Status DC Fentanyl Citrate (Fentanyl 2ml Vial) 100 mcg STK-MED ONCE .ROUTE ; Start at 07:14; Stop 05/09/17 at 14:42; Status DC Midazolam HCl (Versed) 2 mg STK-MED ONCE .ROUTE ; Start 05/09/17 at 07:14; Stop 05/09/17 at 14:42; Status DC Acetaminophen/ Hydrocodone Bitart (Lortab 7.5/325) 1 tab PRN Q3HRS PRN PO PAIN ; Start 05/09/17 at 07:15 Acetaminophen/ Hydrocodone Bitart (Lortab 10/325) 1 tab PRN Q3HRS PRN PO PAIN; Start 05/09/17 at 07:15 Tramadol HCl (Ultram) 50 mg PRN QID PRN PO PAIN Last administered on 21:43; Start 05/09/17 at 07:15 Oxycodone/ Acetaminophen (Percocet 5/325) 1 tab PRN Q3HRS PRN PO PAIN; Start 05/09/17 at 07:15 Oxycodone/ Acetaminophen (Percocet 7.5/ 325) 1 tab PRN Q3HRS PRN PO PAIN Last administered on 05/10/17 09:09; Start 05/09/17 at 07:15 Tramadol HCl (Ultram) 100 mg PRN Q3HRS PRN PO PAIN; Start 05/09/17 at 07:15 Morphine Sulfate 2 mg PRN Q1HR PRN IV PAIN; Start 05/09/17 at 07:15 Fentanyl Citrate (Fentanyl 2ml Vial) 25 mcg PRN Q1HR PRN IV PAIN; Start at 07:15 Diphenhydramine HCl (Benadryl) 25 mg PRN Q6HRS PRN IV ITCHING; Start 05/09/17 at 07:15 Warfarin Sodium (Coumadin) 7.5 mg 1X ONCE PO Last administered on 05/09/17 16:11; Start 05/09/17 at 16:00; Stop 05/09/17 at 16:01; Status DC Warfarin Sodium (Coumadin Per Pharmacy) 1 each PRN DAILY PRN MC SEE COMMENTS; Start 05/09/17 at 07:15 Multivitamins (Thera M Plus) 1 tab DAILY PO Last administered on 05/10/17 08: 51; Start 05/10/17 at 09:00 Senna/Docusate Sodium (Senna Plus) 1 tab DAILY PO Last administered on 08:52; Start 05/10/17 at 09:00 Ferrous Sulfate (Feosol) 325 mg BIDWMEALS PO Last administered on 05/10/17 08 :51; Start 05/10/17 at 08:00 Celecoxib (CeleBREX) 200 mg BID PO Last administered on 05/10/17 08:51; Start 05/09/17 at 21:00 Dextrose/Sodium Chloride 1,000 ml @ 100 mls/hr Q10H IV Last administered on 03:09; Start 05/09/17 at 07:09 Prochlorperazine Maleate (Compazine) 10 mg PRN Q4HRS PRN PO NAUSEA/VOMITING; Start 05/09/17 at 07:15 Metoclopramide HCl (Reglan) 10 mg PRN Q4HRS PRN IV NAUSEA/VOMITING; Start at 07:15 Magnesium Hydroxide (Milk Of Magnesia) 2,400 mg 1X PRN PRN PO CONSTIPATION; Start 05/10/17 at 06:00; Stop 05/11/17 at 05:59 Bisacodyl (Dulcolax Supp) 10 mg 1X PRN PRN [place] CONSTIPATION; Start 05/10/17 at 16:00; Stop 05/11/17 at 15:59 Acetaminophen (Tylenol) 650 mg PRN Q4HRS PRN PO MILD PAIN / TEMP; Start at 07:15 Zolpidem Tartrate (Ambien) 5 mg PRN QHS PRN PO INSOMNIA, MAY REPEAT IN 1HR; Start 05/09/17 at 07:15 Calcium Carbonate/ Glycine (Tums) 500 mg PRN QID PRN PO INDIGESTION; Start at 07:15 Morphine Sulfate 4 mg PRN Q1HR PRN IV PAIN; Start 05/09/17 at 07:15 Morphine Sulfate 6 mg PRN Q1HR PRN IV PAIN; Start 05/09/17 at 07:15 Morphine Sulfate 8 mg PRN Q1HR PRN IV PAIN; Start 05/09/17 at 07:15 Sodium Chloride (Normal Saline Flush) 10 ml QSHIFT PRN IV AFTER MEDS AND BLOOD DRAWS; Start 05/09/17 at 07:15 Fentanyl Citrate (Fentanyl 2ml Vial) 50 mcg PRN Q1HR PRN IV PAIN; Start at 07:15 Prochlorperazine Edisylate (Compazine) 10 mg PRN Q4HRS PRN IV NAUSEA/VOMITING; Start 05/09/17 at 07:15 Dextrose (Dextrose 50%-Water Syringe) 12.5 gm PRN Q15MIN PRN IV SEE COMMENTS; Start 05/09/17 at 07:15 Cefazolin Sodium/ Dextrose 50 ml @ 100 mls/hr Q6H IV Last administered on t 03:23; Start 05/09/17 at 13:30; Stop 05/10/17 at 01:59; Status DC Propofol 20 ml @ As Directed STK-MED ONCE IV ; Start 05/09/17 at 07:15; Stop 05/09/17 at 14:42; Status DC Dexamethasone Sodium Phosphate (Decadron) 20 mg STK-MED ONCE .ROUTE ; Start at 07:15; Stop 05/09/17 at 14:42; Status DC Famotidine (Pepcid) 20 mg STK-MED ONCE .ROUTE ; Start 05/09/17 at 07:15; Stop 05/09/17 at 14:42; Status DC Lidocaine HCl (Lidocaine Pf 2% Vial) 5 ml STK-MED ONCE .ROUTE ; Start 05/09/17 at 07:15; Stop 05/09/17 at 14:42; Status DC Ondansetron HCl (Zofran) 4 mg STK-MED ONCE .ROUTE ; Start 05/09/17 at 07:15; Stop 05/09/17 at 14:42; Status DC Morphine Sulfate 10 mg STK-MED ONCE .ROUTE ; Start 05/09/17 at 07:57; Stop at 14:42; Status DC Sodium Chloride (Sodium Chloride) 50 ml STK-MED ONCE IJ ; Start 05/09/17 at 07: 57; Stop 05/09/17 at 14:42; Status DC Neostigmine Methylsulfate 5 mg STK-MED ONCE .ROUTE ; Start 05/09/17 at 09:16; Stop 05/09/17 at 14:42; Status DC Glycopyrrolate (Robinul) 1 mg STK-MED ONCE .ROUTE ; Start 05/09/17 at 09:16; Stop 05/09/17 at 14:42; Status DC Sevoflurane (Ultane) 60 ml STK-MED ONCE IH ; Start 05/09/17 at 09:35; Stop at 14:42; Status DC Sevoflurane (Ultane) 90 ml STK-MED ONCE IH ; Start 05/09/17 at 09:35; Stop at 14:42; Status DC Morphine Sulfate 2 mg STK-MED ONCE .ROUTE ; Start 05/09/17 at 10:42; Stop at 14:42; Status DC Fentanyl Citrate (Fentanyl 2ml Vial) 100 mcg STK-MED ONCE .ROUTE ; Start at 11:19; Stop 05/09/17 at 14:42; Status DC Active Scripts Active Reported Potassium Chloride 10 Meq Tablet.er 10 Meq PO DAILY Cold Relief Head Congest Cplt (Dm Hb/Pe/Acetaminophen/Chlorph) 1 Each Tablet.seq 1 Each PO PRN Q24HRS PRN Hydrochlorothiazide Tablet (Hydrochlorothiazide) 12.5 Mg Tablet 12.5 Mg PO DAILY Losartan Potassium 100 Mg Tablet 100 Mg PO DAILY Simvastatin 40 Mg Tablet 40 Mg PO HS Tramadol Hcl 50 Mg Tablet 1 Tab PO TID Ambien (Zolpidem Tartrate) 10 Mg Tablet 10 Mg PO HS PRN Vitals/I & O Vital Sign - Last 24 Hours 05/09/17 05/09/17 05/09/17 05/09/17 11:03 11:10 11:22 11:25 Temp 97.9 97.9 97.9 97.9 Pulse 78 68 Resp 18 18 14 18 B/P (MAP) 94/48 92/46 Pulse Ox 96 96 92 O2 Delivery Nasal Cannula Nasal Cannula Nasal Cannula O2 Flow Rate 2 2 05/09/17 05/09/17 05/09/17 05/09/17 11:45 11:45 12:00 12:15 Pulse 76 76 79 68 Resp 20 20 20 20 B/P (MAP) 101/58 (72) 101/58 (72) 98/56 (70) 101/59 (73) Pulse Ox 92 92 97 96 O2 Delivery Nasal Cannula Nasal Cannula Nasal Cannula Nasal Cannula O2 Flow Rate 2.0 2.0 2.0 2.0 05/09/17 05/09/17 05/09/17 05/09/17 12:20 12:30 13:00 13:30 Pulse 82 76 73 Resp 20 2 20 B/P (MAP) 89/83 (85) 90/48 (62) 102/60 (74) Pulse Ox 97 95 95 O2 Delivery Nasal Cannula Nasal Cannula Nasal Cannula Nasal Cannula O2 Flow Rate 2.0 2.0 2.0 2.0 05/09/17 05/09/17 05/09/17 05/09/17 14:00 16:05 19:30 19:50 Temp 97.6 97.6 Pulse 78 87 Resp 20 16 B/P (MAP) 134/79 (97) 122/61 (81) Pulse Ox 97 97 92 O2 Delivery Nasal Cannula Room Air Nasal Cannula Room Air O2 Flow Rate 2.0 2.0 05/09/17 05/09/17 05/09/17 05/10/17 21:43 22:45 23:51 03:00 Temp 97.7 98.8 97.7 98.8 Pulse 79 69 Resp 16 20 B/P (MAP) 114/52 (72) 110/61 (77) Pulse Ox 92 92 95 98 O2 Delivery Room Air Room Air Nasal Cannula O2 Flow Rate 2.0 05/10/17 05/10/17 05/10/17 05/10/17 06:07 07:00 07:09 08:52 Temp 97.6 97.6 Pulse 63 63 Resp 16 18 B/P (MAP) 104/65 (78) 104/65 Pulse Ox 98 100 98 O2 Delivery Room Air Nasal Cannula Room Air O2 Flow Rate 2.0 05/10/17 09:09 O2 Delivery Room Air Intake and Output 05/10/17 05/10/17 05/11/17 15:00 23:00 07:00 Output Total 275 ml Balance -275 ml STUART JERNIGAN APRN May 10, 2017 11:00
[2017-05-10] MEDS ORDERED: FERR-26 PO (11:46)
[2017-05-10] MEDS ORDERED: WARF5TAB7 PO (11:46)
--- NOTE | 2017-05-10 13:19 | CONS ---
DATE OF CONSULTATION: 05/09/2017 This is Shania Pitts dictating on behalf of Dr. Kailash Davis. REFERRING PHYSICIAN: Dr. Trinidad. CHIEF COMPLAINT AND HISTORY OF PRESENT ILLNESS: This is a 62-year-old male who is well known to me from followup in the clinic. The patient has a longstanding history of bilateral knee pain and was placed on disability several years back secondary to his knee pain. The patient was originally referred to Dr. Trinidad for consultation on his knees. The patient has had bilateral knee scopes in the past. The patient also has a history of hypertension and chronic insomnia as well as intermittent seasonal allergies. MEDICATIONS: Medications were brought with the patient and are listed on the computer and have been addressed. ALLERGIES: IODINE CONTRAST ORAL and IV DYE. SOCIAL HISTORY: He is a nonsmoker and nondrinker. He does not use illicit drugs. He is and lives at home with his . As noted above, the patient is currently on disability. The patient is a father of 8 children. FAMILY HISTORY: Noncontributory. REVIEW OF SYSTEMS: As mentioned above, bilateral knee pain with years of worsening symptomatology. PHYSICAL EXAMINATION: GENERAL: He is a well-developed, well-nourished white male in no acute distress. VITAL SIGNS: Stable. He is afebrile. HEAD, EYES, EARS, NOSE AND THROAT: Unremarkable. NECK: Supple, without thyromegaly. CHEST: Clear to auscultation and percussion. HEART: Regular rate and rhythm without S3, S4 or murmur. ABDOMEN: Soft and nontender, without hepatosplenomegaly or mass. EXTREMITIES: Without cyanosis, clubbing or edema. The right knee does have a dressing that is clean, dry and intact following his surgery. NEUROLOGIC: He is intact. IMPRESSION: Advanced primary degenerative joint disease of the right knee. PLAN: The patient has been admitted. We will follow along with Dr. Trinidad through the patient's right knee replacement and hospital stay thereafter. KAILASH DAVIS MD DR: KEVIN/aria JOB#: [id number] / [id number]
[2017-05-10] MEDS ORDERED: BISACODYL 10 MG SUPP.RECT. PR PRN (16:00)
[2017-05-10] MEDS ORDERED: WARFARIN 5 MG TABLET. PO ONE (16:30)
--- NOTE | 2017-05-11 14:27 | PATHOLOGY ---
PATHOLOGY REPORT * * * * * * * * FINAL DIAGNOSIS: Segments of bone and soft tissue, right total knee arthroplasty: - Advanced degenerative arthritis. (JPM:db; 05/11/2017) REPORT ELECTRONICALLY SIGNED BY: Isac Andrews M.D. DATE/TIME: 05/11/2017 14:25 * * * * * * * * GROSS PATHOLOGY: Received in formalin labeled "Janelle Medellin, right knee bone and tissue," are multiple segments of bone, including tibial plateau, measuring 13.3 x 12.3 x 2.0 cm in aggregate dimensions admixed with soft tissue; meniscus is present. The specimen shows focal eburnation of the articular surfaces. Emblem Fuser Tender sections of bone and soft tissue are submitted in cassette A1, following decalcification. (DAC; 05/10/2017) INITIAL CPT CODE(S): A; 17272, 13388 Professional services [place] [facility] [place] [address] Technical services performed by [facility] at [address] [place] [address]. SPECIMEN(S) RECEIVED: A.Right knee bone and tissue CLINICAL HISTORY: Right knee DJD PATIENT: JANELLE MEDELLIN /AGE: 701/26/1955 (Age: 62) PATIENT #: [id number] ALT CASE #: SPECIMEN COLLECTION DATE: 05/09/2017 SPECIMEN RECEIVED DATE: 05/09/2017 [facility] - [address] [place] [address] - PHONE: [phone] * * * END OF REPORT * * *
== END 2017-05-10 17:28 | disposition home health service (06) | DRG 470 ==
LOC: EDBD → OPSVCIP 06:13 → 4 NORTH 11:27
PROVIDERS: ADMIT Orthopaedic Surgery Sports Medicine; ATTEND Orthopaedic Surgery Sports Medicine
PROC: 0SRC0J9 Replacement of Right Knee Joint with Synthetic Substitute, Cemented, Open Approach (ICD-10-PCS; principal; 2017-05-09 07:30)
DX: M17.11 Unilateral primary osteoarthritis, right knee (principal); G47.00 Insomnia, unspecified; I10 Essential (primary) hypertension; Z91.041 Radiographic dye allergy status
CPT/HCPCS: 36415; 73560; 85014; 85018; 85610; 85730; 86850; 86900; 86901; 88305; 88311; C1713; J0171; J0690; J1100; J1885; J2250; J2270; J2405; J2704; J2710; J2795; J3010; J3490; J7030; J7120; S0028; 97110; 97116; 97530; 97535; C1769; J2001

== ENCOUNTER 2017-08-31 06:08 | Day surgery (SDC) | payer MEDICARE ==
[2017-08-31] MEDS ORDERED: MORPHINE SULFATE 2 MG/ML DISP.SYRIN. IV (07:00)
[2017-08-31] MEDS ORDERED: ONDANSETRON PF 4 MG/2 ML VIAL. IV (07:00)
[2017-08-31] MEDS ORDERED: PROCHLORPERAZINE 10 MG/2 ML VIAL. IV (07:00)
[2017-08-31] MEDS ORDERED: HYDROmorphone 2 MG/ML VIAL IV (07:00)
[2017-08-31] MEDS ORDERED: LIDOCAINE 1% PF 2 ML VIAL. ID (07:00)
[2017-08-31] MEDS: IV RINGERS,LACTATED 1000ML 1,000 ML IV (07:00)
[2017-08-31] MEDS ORDERED: fentaNYL PF VIAL 100 MCG/2 ML VIAL IV ×2 (07:00)
[2017-08-31] MEDS ORDERED: fentaNYL PF VIAL 100 MCG/2 ML VIAL (08:05)
[2017-08-31] MEDS ORDERED: PROPOFOL 20 ML IV ×2 (08:22)
[2017-08-31] MEDS ORDERED: oxyCODONE/APAP 7.5/325 1 TAB TABLET (08:29)
[2017-08-31] MEDS: oxyCODONE/APAP 7.5/325 1 TAB TABLET PO (08:42)
== END 2017-08-31 10:24 | disposition home or self-care (01) ==
LOC: SURG 06:08
DX: M24.661 Ankylosis, right knee (principal); E78.00 Pure hypercholesterolemia, unspecified; I10 Essential (primary) hypertension; K21.9 Gastro-esophageal reflux disease without esophagitis; Z96.651 Presence of right artificial knee joint; Z87.39 Personal history of other diseases of the musculoskeletal system and connective tissue; Z98.86 Personal history of breast implant removal; Z86.73 Personal history of transient ischemic attack (TIA), and cerebral infarction without residual deficits; Z72.89 Other problems related to lifestyle; Z91.041 Radiographic dye allergy status; Z90.49 Acquired absence of other specified parts of digestive tract
CPT/HCPCS: 27570; J2704; J3010

== ENCOUNTER → 2019-01-29 | Outpatient (CLI) | payer MEDICARE ==
[2017-08-31 08:35] VITALS: BP 143/85
[~2019-01-29] MED LIST changes: -ACETAMINOPHEN 500 MG TABLET PO PRN; +FERR325T14 PO; -HYDROcodone/APAP 7.5/325MG 1 TAB TABLET PO PRN; +LOSA100T14 PO; -LOSA100T6 PO; -MELOXICAM 7.5 MG TABLET PO PRN; -MORPHINE SULFATE 5 MG, KETOROLAC 30 MG, ROPIVacaine 0.5% PF 60 ML, EPINEPHrine 0.5 MG i... INT ART ONE; +OXYC1TAB19 PO; +WARF-31 PO; +methylPREDNISolone ACETATE 40 MG/ML VIAL. ONE; +methylPREDNISolone ACETATE 80 MG/ML VIAL. ONE
--- NOTE | 2019-01-29 13:25 | PAIN ---
DATE OF SERVICE: 01/29/2019 INITIAL CONSULTATION FOR PAIN CLINIC CHIEF COMPLAINT: Low back and left lower extremity pain. HISTORY OF PRESENT ILLNESS: This is a 64-year-old male who presents with history of pain since he was hit by a backhoe about 20-25 years ago, when the pain started in the low back and his left leg. 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 The patient reports it is constant, sharp, stabbing and shooting in the left lower extremity with tingling and numbness as well. The patient reports it is worse with walking and standing, change in positions, getting up and around, much worse in the morning, occasionally awakens him from sleep at least twice at night, but not every night. The patient reports it does not affect his bowel or bladder control, but does affect his ability to walk, and he feels like his left leg is actually shorter than his right one. He is walking and favoring the left leg, is causing increasing low back pain as well. The patient reports no loss of motor function. The patient did have MRI scan of the lumbar spine showing some significant stenosis with high-grade anterolisthesis L5-S1 and moderate to severe left neural foraminal encroachment and moderate right neural foraminal encroachment. L4-L5 shows severe bilateral neural foramen encroachment as well. At L2-L3, shows a left-sided foraminal lateral disk protrusion. The patient rates his disability from 0-10, 10 being the worst, 10 with family and home responsibilities, recreation, social activity, occupation and sexual behavior. The patient rates self-care is 8-9 and life support activities as 9-10 as well. The patient reports no loss of motor function, but significant fatigability with the left lower extremity with ambulation, especially change in positions or getting up from a seated position. Again, no loss of motor function. PAST MEDICAL HISTORY: Significant for hearing loss, hypertension, arthritis, TIA 3 years ago. PREVIOUS SURGERY: Includes right total knee replacement, right rotator cuff repair, appendectomy, cholecystectomy. CURRENT MEDICATIONS: Include daily baby aspirin, Percocet, losartan, hydrochlorothiazide. ALLERGIES: THE PATIENT IS ALLERGIC TO IV CONTRAST. No other medical allergies. FAMILY HISTORY: Significant for heart disease and cancers. SOCIAL HISTORY: The patient drinks alcohol very rarely, only on special occasions, maybe once or twice a year, does not use any illegal, illicit or recreational drugs, does not smoke, is and lives with his spouse. He is retired, has no children, living at home and lives locally in [place], [place]. REVIEW OF SYSTEMS: The patient's review of systems is positive for those items mentioned in history of present illness. All systems reviewed and otherwise negative. It is complete, full and well documented on the patient's chart. PHYSICAL EXAMINATION: VITAL SIGNS: The patient's blood pressure 160/104, pulse 79, respirations 18, temperature 98.5 degrees Fahrenheit. Height is 5 feet 7 inches, weight is 247 pounds. GENERAL: The patient is awake, alert, oriented, appropriate, very pleasant demeanor. HEENT: Head shows normocephalic, atraumatic. Extraocular movements are intact and symmetrical. Oral cavity: Mucous membranes are moist and pink. Dentition is intact. NECK: Shows anterior throat supple without palpable lymphadenopathy noted. Swallow reflex symmetrical. CHEST: Shows normal on inspection. Breath sounds clear to auscultation bilaterally. HEART: Shows S1, S2 clear. No murmurs auscultated. ABDOMEN: Soft, nontender, nondistended. No palpable organomegaly is noted. No rebound or guarding demonstrated. BACK: Shows spine grossly in the midline. Normal appearing thoracic kyphosis and lumbar lordotic curvature. Lumbar paraspinous muscle shows symmetrical on inspection and palpation shows some moderate tenderness diffusely bilaterally, but only diffusely without radiation. EXTREMITIES: The patient's lower extremities show deep tendon reflexes at 1+ in the patellar and tendo-calcaneus tendons. The patient has significant scarring over the right knee and minimal scarring in the left. Tendocalcaneous tendons are 1+ bilaterally. Motor exam is approximately 4 on a scale of 5 on the left, 5/5 on the right with dorsiflexion, extension, quadriceps and hamstring flexion and are symmetrical. Lower extremities are warm and dry to touch, equal in color and appearance. Peripheral pulses are 1+ posterior tibia. No peripheral edema is noted bilaterally. Straight leg raise noted to be positive on the left at about 40 degrees. Right side is negative. Gaenslen and Delvin maneuvers are grossly negative bilaterally. The patient is able to stand, stand on his toes without difficulty or loss of balance, walks with a normal appearing gait, does not appear to favor the right lower extremity significantly with walking using any assistive devices such as canes or walkers to ambulate. SKIN: Shows warm and dry, good turgor. No edema. No sores, rashes or bruising. IMPRESSION: 1. This is a 64-year-old male with long history of low back and left lower extremity pain, worse over the past year or so in a radicular fashion. 2. MRI scan of lumbar spine as noted. 3. Hypertension. 4. Arthritis. PLAN: Options were discussed with the patient including conservative medical management, physical therapy, interventional techniques. He would like to pursue interventional techniques. We discussed a lumbar epidural steroid injection using description as well as anatomical models to describe the procedure. Risks were then discussed including, but not limited to bleeding, infection, possibility of epidural hematoma, subsequent neurologic compromise, dural puncture, headaches, spinal cord and/or nerve damage, side effects of steroid medication and poor results regarding pain control. The patient understands and wished to proceed. The patient will return to the clinic in approximately 2 weeks for followup, was counseled on return appointment, activity level and side effects to be aware of. DIAGNOSES: Lumbar radiculopathy with lumbar degenerative disk disease, lumbar spinal stenosis. PROCEDURE: Lumbar epidural steroid injection, translaminar approach L5-S1 level using C-arm fluoroscopic guidance under sterile prep and drape using local anesthetic. MEDICATION INJECTED: A total of 120 mg Depo-Medrol plus 10 mL of preservative-free normal saline. No contrast as the patient is allergic. CONDITION AT DISCHARGE: Stable. The patient tolerated procedure well, had no complications. COSTA LAMBERT MD DR: HARPREET/aria JOB#: [id number] / [id number] KAILASH Sands
== END ==
LOC: PNCL 10:24
PROVIDERS: ATTEND Anesthesiology
DX: M51.16 Intervertebral disc disorders with radiculopathy, lumbar region (principal); M48.061 Spinal stenosis, lumbar region without neurogenic claudication; I10 Essential (primary) hypertension; Z86.73 Personal history of transient ischemic attack (TIA), and cerebral infarction without residual deficits; Z96.651 Presence of right artificial knee joint; Z90.49 Acquired absence of other specified parts of digestive tract; Z98.890 Other specified postprocedural states; Z91.041 Radiographic dye allergy status
CPT/HCPCS: 62323; J1030; J1040

== ENCOUNTER → 2021-03-04 | Outpatient (CLI) | payer MEDICARE ==
[2017-08-31 08:35] VITALS: BP 143/85
[~2021-03-04] MED LIST changes: +ALBU2.5V8 INH; +CRESTOR5 MG PO; -POTA10TA12 PO; +POTASSIUM CHLO10 ME1 PO; +SIMV40TA18 PO; -SIMV40TA3 PO; -methylPREDNISolone ACETATE 40 MG/ML VIAL. ONE; -methylPREDNISolone ACETATE 80 MG/ML VIAL. ONE
== END ==
LOC: LAB 09:55
PROVIDERS: ATTEND Orthopaedic Surgery
DX: Z01.812 Encounter for preprocedural laboratory examination (principal); G56.02 Carpal tunnel syndrome, left upper limb; M65.312 Trigger thumb, left thumb; G56.22 Lesion of ulnar nerve, left upper limb; Z20.822 Contact with and (suspected) exposure to COVID-19
CPT/HCPCS: U0003; U0005

== ENCOUNTER 2021-03-06 06:11 | Day surgery (SDC) | payer MEDICARE ==
[~2021-03-06] VITALS: Ht 167.6 cm; Wt 104.5 kg
[~2021-03-06 06:11] MED LIST changes: +HYDROmorphone 2 MG/ML VIAL IVP PRN; +IV RINGERS,LACTATED 1000ML 1,000 ML IV SCH; +MORPHINE SULFATE 2 MG/ML INJ. IVP PRN; +PROCHLORPERAZINE 10 MG/2 ML VIAL. IVP PRN; +ceFAZolin SODIUM 3 GM in IV DEXTROSE 5% 100ML 100 ML IV PRN; +fentaNYL PF VIAL 100 MCG/2 ML VIAL IVP PRN
[2021-03-06 06:47] VITALS: BP 182/81
[2021-03-06] MEDS ORDERED: PROPOFOL 10 MG/ML (20ML) VIAL. IV ONE (06:53)
[2021-03-06] MEDS ORDERED: ONDANSETRON PF 4 MG/2 ML VIAL. ONE (06:53)
[2021-03-06] MEDS ORDERED: DEXAMETHASONE SOD PHOS 4 MG/ML VIAL ONE (06:53)
[2021-03-06] MEDS ORDERED: LIDOCAINE 2% PF 5 ML VIAL. ONE (06:53)
[2021-03-06] MEDS ORDERED: BUPIVACAINE MPF 0.5% 30 ML VIAL. ONE (07:06)
[2021-03-06] MEDS ORDERED: fentaNYL PF VIAL 100 MCG/2 ML VIAL ONE (08:02)
[2021-03-06] MEDS ORDERED: KETOROLAC 30 MG/ML VIAL. ONE (08:02)
[2021-03-06] MEDS ORDERED: SEVOFLURANE 31 TO 60 MINUTES. IH ONE (08:02)
--- NOTE | 2021-03-06 08:44 | DISCH ---
DISCHARGE INSTRUCTIONS Condition on Discharge Condition on Discharge: Stable Activity After Discharge Activity Instructions for Disc: Other, see below (May perform fine motor tasks such as eating writing and typing, no hard grasping, encourage elbow range of motion) Bathing Instructions: Shower-keep dressing dry, No Tub Bath until see Lifting Instructions after Dis: No heavy lifting, No pulling or pushing, Do not lift >10 pounds Weight Bearing Status after Di: As tolerated Diet after Discharge Diet after Discharge: Regular Wound Incision Care Wound/Incision Care: Ice to area for comfort, Change dressing (May remove elbow dressing in 3 to 4 days, keep wrist and hand dressing on unless soiled) Wound Care Equipment: Dressings Contacting the [facility] after DC Call your doctor for: Concerns you may have Follow-Up Follow up with: Dr. Fountain or Shayan 10 days WANDA FOUNTAIN MD Mar 06, 2021 08:44
[2021-03-06] MEDS ORDERED: oxyCODONE/APAP 7.5/325 1 TAB TABLET PO ONE (09:00)
[2021-03-06 09:04] VITALS: BP 167/84
[2021-03-06] MEDS ORDERED: oxyCODONE/APAP 7.5/325 1 TAB TABLET ONE (09:06)
--- NOTE | 2021-03-08 19:16 | PDOC4 ---
Operative Note Operative Note Date of surgery: 03/06/2021 Preoperative diagnosis: Left carpal and cubital tunnel syndrome, left trigger thumb Postoperative diagnosis: Same with severe ulnar nerve compression and moderate median nerve compression Operative procedure: Left carpal tunnel release, left cubital tunnel release, left trigger thumb release Surgeon: Александр Digital [employer] Coordinator: Grant ingram Anesthesia: General Estimated blood loss: 25 cc Complications: None Operative indications: Please see my preoperative clinic notes for detailed operative indications and note that patient is having worsening numbness in the left hand unrelieved by nonoperative measures and EMG verified compression at the carpal and cubital tunnels he is also experiencing triggering of the left thumb. We had talked about release of all of these areas and the rationale of getting pressure off the nerves and the possibility of incomplete relief or additional nerve or blood vessel damage infection medical or other anesthetic complications among others he agrees to proceed with surgical evaluation and treatment Operative text: Patient was identified procedure verified patient placed in the supine position on the operating table. After adequate amounts of general anesthesia were administered the left upper extremity was prepped and draped in standard sterile fashion with a sterile tourniquet and initially tourniquet was not used for the carpal and trigger thumb releases. Exsanguination was first carried out with an Esmarch bandage and a longitudinal incision was made just distal to the distal palmar crease and dissection carried out down to the transverse carpal ligament bleeding points controlled by electrocautery and transverse carpal ligament was dissected sharply initially with a scalpel and proximally and distally with blunt tipped scissors where complete release of the transverse carpal ligament was visualized and verified palpably. Median nerve was noted to have moderate compression. A transverse incision was made at the base of the left thumb and A1 viktor was sharply divided with a scalpel and blunt tipped tenotomy scissors and the flexor integrity was intact. Attention was then turned to the cubital tunnel where the upper extremity was exsanguinated and tourniquet inflated to 250 mmHg dissection carried out to the cubital tunnel and the area was carefully unroofed sharply protecting the ulnar nerve. Release was carried out from the intermuscular septum proximally throughout the cubital tunnel extending into the flexor pronator musculature. Complete release was carried out and no nerve subluxation was noted with elbow range of motion. Severe compression of the ulnar nerve was noted at the cubital tunnel. Irrigation carried out normal saline solution bleeding points controlled by electrocautery subcutaneous closure accomplished with Vicryl suture and cubital tunnel incision closed with nylon suture in a vertical mattress fashion. Similar closure was with nylon suture carried out of the carpal tunnel and trigger thumb incisions. Sterile soft dressings were placed fingers were noted be warm pink following deflation of the tourniquet patient was returned to recovery room stable condition having tolerated procedure well. Grant ingram was present for the procedure and assisted in patient positioning prepping draping retraction closure and dressings WANDA AGUAYO MD Mar 08, 2021 19:15
== END 2021-03-06 09:34 | disposition home or self-care (01) ==
LOC: SURG 06:11
PROVIDERS: ATTEND Orthopaedic Surgery
DX: G56.02 Carpal tunnel syndrome, left upper limb (principal); G56.22 Lesion of ulnar nerve, left upper limb; M65.312 Trigger thumb, left thumb; I10 Essential (primary) hypertension; Z86.73 Personal history of transient ischemic attack (TIA), and cerebral infarction without residual deficits; Z91.041 Radiographic dye allergy status; Z79.82 Long term (current) use of aspirin; Z98.890 Other specified postprocedural states
CPT/HCPCS: 26055; 64718; 64721; A4930; A6402; A6449; A6450; J1100; J1885; J2405; J2704; J3010; J3490; A4223; A4657; A6452